=== PATIENT | male | born 1955 | race Caucasian/White ===

== ENCOUNTER 2019-11-02 10:29 | Outpatient (CLI) | payer OTHER ==
--- NOTE | 2019-11-02 18:16 | MRI Report ---
Reason: PAIN IN LT FOOT Procedure Date: 11/02/2019 Accession Number: [id number] / [id number] Procedure: MRI - Foot LT W/O CPT Code: Final Report FULL RESULT: EXAM: LEFT FOREFOOT MRI WITHOUT CONTRAST EXAM DATE: 11/02/2019 11:39 AM. CLINICAL HISTORY: Pain in left foot. Injury several months ago. COMPARISON: None. TECHNIQUE: Multiplanar, multisequence T1-weighted and fluid-sensitive sequences of the forefoot without contrast. Other: None. FINDINGS: Bones: No fractures. No marrow edema. No bone lesions. Joints: No subluxations. Small first MTP joint effusion. The orrqea-pjuqfmcm-izzcecrmya complex is unremarkable. The visualized plantar plates are unremarkable. Articular Cartilage: Unremarkable. Ligaments: The visualized collateral ligaments are intact. Tendons: The flexor and extensor tendons are unremarkable. Musculature: No edema or fatty atrophy. Other: No intermetatarsal bursitis. The subcutaneous tissues are unremarkable. IMPRESSION: No significant MRI abnormalities in the forefoot. Small first MTP joint effusion. RADIA
== END 2019-11-02 10:30 | disposition home or self-care (01) ==
LOC: DI 10:29
PROVIDERS: ATTEND Family Medicine
DX: M79.672 Pain in left foot (principal); M25.475 Effusion, left foot

== ENCOUNTER 2020-12-26 17:35 | Outpatient (CLI) | payer MEDICARE, OTHER | END 2020-12-26 17:36 | disposition critical access hospital (66) | LOC: EMS 17:35 | DX: R11.2 Nausea with vomiting, unspecified (principal); R42 Dizziness and giddiness; R51.9 Headache, unspecified | CPT/HCPCS: A0425; A0427 ==

== ENCOUNTER 2020-12-26 17:51 | Emergency (ER) | payer MEDICARE, OTHER ==
[2020-12-26] MEDS ORDERED: DROPERIDOL 5 MG/2 ML VIAL IVP STA (17:57)
[2020-12-26] MEDS ORDERED: diphenhydrAMINE INJ 50 MG/ML VIAL IVP STA (17:58)
[2020-12-26 18:12] LABS: BASOPHILS # (AUTO) 0.1 10^3/uL (0.0-0.1); BASOPHILS % (AUTO) 0.4 %; EOSINOPHILS # (AUTO) 0.1 10^3/uL (0.0-0.7); EOSINOPHILS % (AUTO) 0.6 %; HCT - HEMATOCRIT 43.5 % (42.0-52.0); HGB - HEMOGLOBIN 14.6 g/dL (14.0-18.0); LYMPHOCYTES # (AUTO) 0.9 10^3/uL (1.5-3.5); LYMPHOCYTES % (AUTO) 7.5 %; MEAN CORPUSCULAR HEMOGLOBIN 30.3 pg (27.0-31.0); MEAN CORPUSCULAR HGB CONC 33.6 g/dL (32.0-36.0); MEAN CORPUSCULAR VOLUME 90.2 fL (80.0-94.0); MEAN PLATELET VOLUME 9.9 fL (7.4-11.4); MONOCYTES # (AUTO) 0.7 10^3/uL (0.0-1.0); MONOCYTES % (AUTO) 5.7 %; NEUTROPHILS # (AUTO) 10.8 10^3/uL (1.5-6.6); NEUTROPHILS % (AUTO) 85.3 %; PLT - PLATELET COUNT 181 10^3/uL (130-450); RED BLOOD COUNT 4.82 10^6/uL (4.70-6.10); WHITE BLOOD COUNT 12.6 x10^3/uL (4.8-10.8)
[2020-12-26 18:26] LABS: ALBUMIN 4.4 g/dL (3.2-5.5); ALBUMIN/GLOBULIN RATIO 1.9 (1.0-2.2); BILIRUBIN,TOTAL 1.1 mg/dL (0.2-1.0); CALCIUM 8.8 mg/dL (8.5-10.3); CREATININE 0.8 mg/dL (0.6-1.2); POTASSIUM 3.5 mmol/L (3.5-5.0); TOTAL PROTEIN 6.7 g/dL (6.7-8.2)
--- NOTE | 2020-12-26 18:31 | ED Physician Documentation ---
History of Present Illness - Stated complaint Stated Complaint: N/V, HEADACHE - Chief complaint Chief Complaint: General - History obtained from History obtained from: Patient, EMS - History of Present Illness Timing: Today, How many hours ago (2) Pain level max: 8 Pain level now: 8 - Additonal information Additional information: 65-year-old male presents to the emergency department with nausea, vomiting, headache. Started about 2 hours prior to arrival. He has had similar symptoms several years ago. He uses marijuana 5-6 times per day. He states his main issue is severe nausea at the moment. Nothing makes it better or worse. Given Zofran with EMS without relief. Headache is frontal. States it is not the worst headache of his life. Review of Systems Ten Systems: 10 systems reviewed and negative Constitutional: denies: Fever, Chills Ears: denies: Ear pain Nose: denies: Rhinorrhea / runny nose, Congestion Throat: denies: Sore throat Cardiac: denies: Chest pain / pressure Respiratory: denies: Cough GI: reports: Nausea, Vomiting. denies: Diarrhea : denies: Dysuria, Frequency, Hesitancy Skin: denies: Rash Musculoskeletal: denies: Neck pain, Back pain Neurologic: reports: Headache PD PAST MEDICAL HISTORY - Past Medical History Past Medical History: Yes Cardiovascular: High cholesterol Psych: ADD/ADHD Musculoskeletal: Chronic back pain - Past Surgical History Past Surgical History: Yes General: Hiatal hernia repair - Present Medications Home Medications: Ambulatory Orders Medication Instructions Recorded Confirmed Ondansetron Odt [Zofran] 4 mg TL Q6H PRN #10 tablet 12/26/20 Promethazine [Phenergan] 25 mg PO Q6H PRN #10 tab 12/26/20 Simvastatin [Zocor] 40 mg PO HS 12/26/20 12/26/20 - Allergies Allergies/Adverse Reactions: Allergies Allergy/AdvReac Type Severity Reaction Status Date / Time acetaminophen Allergy Unknown Unknown Verified 12/26/20 17:54 [From Tylenol-Codeine #3] codeine phosphate * Allergy Unknown Unknown Verified 12/26/20 17:54 [From Tylenol-Codeine #3] - Social History Does the pt smoke?: No Smoking Status: Never smoker Does the pt drink ETOH?: Yes Does the pt have substance abuse?: Yes - Immunizations Immunizations are current?: Yes - POLST Patient has POLST: No PD ED PE NORMAL - Vitals Vital signs reviewed: Yes - General General: Alert and oriented X 3, No acute distress - HEENT HEENT: Atraumatic, PERRL, EOMI, Moist mucous membranes - Neck Neck: Supple, no meningeal sign - Cardiac Cardiac: RRR - Respiratory Respiratory: No respiratory distress, Clear bilaterally - Abdomen Abdomen: Soft, Non tender, Non distended - Derm Derm: Warm and dry - Extremities Extremities: No edema, No calf tenderness / cord - Neuro Neuro: Alert and oriented X 3 - Psych Psych: Normal mood, Normal affect Results - Vitals Vitals: Vital Signs - 24 hr 12/26/20 12/26/20 12/26/20 17:55 18:03 19:24 Temperature 35.5 C L 35.6 C L Heart Rate 71 69 77 Respiratory 22 20 20 Rate Blood Pressure 109/69 100/66 144/79 H O2 Saturation 100 98 95 12/26/20 20:10 Temperature 36.2 C L Heart Rate 79 Respiratory 16 Rate Blood Pressure 115/72 O2 Saturation 96 Oxygen O2 Source Room air - Labs Labs: Laboratory Tests 12/26/20 12/26/20 12/26/20 18:07 18:07 18:46 WBC 12.6 H RBC 4.82 Hgb 14.6 Hct 43.5 MCV 90.2 MCH 30.3 MCHC 33.6 RDW 13.0 Plt Count 181 MPV 9.9 Neut # (Auto) 10.8 H Lymph # (Auto) 0.9 L [place] # (Auto) 0.7 Eos # (Auto) 0.1 Baso # (Auto) 0.1 Absolute Nucleated RBC 0.00 Nucleated RBC % 0.0 Sodium 142 Potassium 3.5 Chloride 110 Carbon Dioxide 20 L Anion Gap 12.0 BUN 27 H Creatinine 0.8 Estimated GFR (MDRD) 97 Glucose 161 H Calcium 8.8 Total Bilirubin 1.1 H AST 25 ALT 28 Alkaline Phosphatase 45 Total Protein 6.7 Albumin 4.4 Globulin 2.3 Albumin/Globulin Ratio 1.9 Lipase 29 Urine Color YELLOW Urine Clarity CLEAR Urine pH 7.0 Ur Specific [place] 1.020 Urine Protein NEGATIVE Urine Glucose (UA) NEGATIVE Urine Ketones >=80 H Urine Occult Blood NEGATIVE Urine Nitrite NEGATIVE Urine Bilirubin NEGATIVE Urine Urobilinogen 0.2 (NORMAL) Ur Leukocyte Esterase NEGATIVE Ur Microscopic Review NOT INDICATED Urine Culture Comments NOT INDICATED - Rads (name of study) head CT Radiology: Prelim report reviewed, EMP read contemporaneously, See rad report (No acute intracranial abnormality) PD MEDICAL DECISION MAKING - ED course Complexity details: reviewed results, re-evaluated patient, considered differential, d/w patient ED course: 65-year-old male with what appears to be cannabinoid induced hyperemesis. He uses marijuana several times daily. Symptoms resolved completely with Benadryl and droperidol. Tolerating p.o. without difficulty. Feels much better. Head CT is negative. No acute findings on laboratory testing. Counseled to stop using marijuana. We will have him follow-up with his doctor for further care. Patient counseled regarding signs and symptoms for which I believe and urgent re-evaluation would be necessary. Patient with good understanding of and agreement to plan and is comfortable going home at this time This document was made in part using voice recognition software. While efforts are made to proofread this document, sound alike and grammatical errors may occur. Departure - Departure Disposition: 01 Home, Self Care Clinical Impression: Cannabinoid hyperemesis syndrome Vomiting Qualifiers: Vomiting type: unspecified Vomiting Intractability: non-intractable Nausea presence: with nausea Qualified Code(s): R11.2 - Nausea with vomiting, unspecified Condition: Good Instructions: ED Nausea Vomiting Follow-Up: BAO VASQUEZ ARNP [Primary Care Provider] - Within 1 week Prescriptions: Promethazine [Phenergan] 25 mg PO Q6H PRN #10 tab PRN Reason: Nausea / Vomiting Ondansetron Odt [Zofran] 4 mg TL Q6H PRN #10 tablet PRN Reason: Nausea / Vomiting Comments: Your symptoms today may be attributed to your cannabis use. You may find that warm showers help. You should stop using any marijuana. Follow-up with your doctor for further care. The symptoms may linger for several days to weeks, some patients that can last up to 3 months. Return if you worsen. Discharge Date/Time: 12/26/20 20:10
--- NOTE | 2020-12-26 18:44 | CT Report ---
PROCEDURE: HEAD WO INDICATIONS: headache, vomiting TECHNIQUE: Noncontrast 4.5 mm thick angled axial sections acquired from the foramen magnum to the vertex. For r adiation dose reduction, the following was used: automated exposure control, adjustment of mA and/or kV according to patient size. COMPARISON: None. FINDINGS: Image quality: Excellent. CSF spaces: Basal cisterns are patent. No extra-axial fluid collections. Ventricles are normal in size and shape. Brain: No midline shift. No intracranial masses or hemorrhage. Christian-white matter interface is norm al. Skull and face: Calvarium and visualized facial bones are intact, without suspicious lesions. Sinuses: Visualized sinuses and mastoids are clear. IMPRESSION: No CT evidence of acute intracranial pathology. Reviewed by: Tyrel Raines MD on 12/26/2020 6:43 PM PDT Approved by: Tyrel Raines MD on 12/26/2020 6:43 PM PDT Station ID: [id number]
[2020-12-26 18:56] LABS: BILIRUBIN,URINE NEGATIVE (NEGATIVE); GLUCOSE, URINE (UA) NEGATIVE (NEGATIVE); KETONES,URINE (UA) >=80 mg/dL (NEGATIVE); LEUKOCYTE ESTERASE, URINE NEGATIVE (NEGATIVE); NITRITE,URINE NEGATIVE (NEGATIVE); OCCULT BLOOD,URINE NEGATIVE (NEGATIVE); PROTEIN,URINE NEGATIVE (NEGATIVE); UROBILINOGEN,URINE 0.2 (NORMAL) E.U./dL (NORMAL)
[2020-12-26 18:57] LABS: CLARITY,URINE CLEAR (CLEAR)
[2020-12-26 20:16] VITALS: BP 115/72
== END 2020-12-26 20:10 | disposition home or self-care (01) ==
LOC: EDUNIT# → ED 17:51
DX: R11.2 Nausea with vomiting, unspecified (principal); F12.90 Cannabis use, unspecified, uncomplicated
CPT/HCPCS: 36415; 70450; 80053; 81003; 83690; 85025; 96374; 96375; 99284; J1200; 81001; 87086

== ENCOUNTER 2022-10-29 07:23 | Emergency (ER) | payer MEDICARE, OTHER ==
[2022-10-29] MEDS ORDERED: SODIUM CHLORIDE 0.9% 1,000 ML IV STA (07:47)
[2022-10-29] MEDS ORDERED: KETOROLAC 30 MG/ML VIAL IVP STA ×2 (07:47→08:02)
[2022-10-29] MEDS ORDERED: ONDANSETRON 4 MG/2 ML VIAL IVP STA (07:47)
[2022-10-29 08:07] LABS: BASOPHILS % (AUTO) 0.2 %; EOSINOPHILS % (AUTO) 0.3 %; HCT - HEMATOCRIT 45.3 % (42.0-52.0); HGB - HEMOGLOBIN 15.4 g/dL (14.0-18.0); LYMPHOCYTES # (AUTO) 0.8 10^3/uL (1.5-3.5); LYMPHOCYTES % (AUTO) 6.7 %; MEAN CORPUSCULAR HEMOGLOBIN 31.2 pg (27.0-31.0); MEAN CORPUSCULAR VOLUME 91.7 fL (80.0-94.0); MEAN PLATELET VOLUME 10.4 fL (7.4-11.4); MONOCYTES # (AUTO) 0.6 10^3/uL (0.0-1.0); MONOCYTES % (AUTO) 4.5 %; NEUTROPHILS # (AUTO) 10.7 10^3/uL (1.5-6.6); NEUTROPHILS % (AUTO) 87.9 %; PLT - PLATELET COUNT 195 10^3/uL (130-450); RED BLOOD COUNT 4.94 10^6/uL (4.70-6.10); RED CELL DISTRIBUTION WIDTH 13.1 % (12.0-15.0); WHITE BLOOD COUNT 12.2 x10^3/uL (4.8-10.8)
--- NOTE | 2022-10-29 08:19 | ED Physician Documentation ---
History of Present Illness - Stated complaint Stated Complaint: L FLANK PX - Chief complaint Chief Complaint: Abd Pain - History obtained from History obtained from: Patient - Additonal information Additional information: The patient comes to the emergency department for chief complaint of left flank pain that started around 130 this morning and woke him from sleep. Patient states that the pain waxes and wanes but sometimes, it gets a strong that he feels nauseated and vomits. Patient states in between he has chills. He denies any dysuria. No gross hematuria. He states that he has never had a kidney stone before. No history of diverticulitis. He has not been ill with anything lately and was feeling fine when he went to bed last night. No other complaints at this time. PD PAST MEDICAL HISTORY - Past Medical History Past Medical History: Yes Cardiovascular: High cholesterol Respiratory: None Neuro: Migraines Endocrine/Autoimmune: None GI: None : Other HEENT: None Psych: ADD/ADHD Musculoskeletal: Chronic back pain Derm: None - Past Surgical History Past Surgical History: Yes General: Hiatal hernia repair - Present Medications Home Medications: Ambulatory Orders Medication Instructions Recorded Confirmed Simvastatin [Zocor] 40 mg PO HS 12/26/20 10/29/22 Fluticasone [Flonase] 1 sprays KEVIN DAILY 10/29/22 10/29/22 HYDROcod/ACETAM 5/325 [[place] 5/325] 1 - 2 tablet PO Q6H PRN #14 tablet 10/29/22 Naproxen 500 mg PO BID PRN 10/29/22 10/29/22 Ondansetron Odt [Zofran] 4 mg TL Q6H PRN #10 tablet 10/29/22 Sildenafil Citrate 100 mg PO PRN PRN 10/29/22 10/29/22 Tamsulosin [Flomax] 1 cap PO DAILY #14 cap 10/29/22 - Allergies Allergies/Adverse Reactions: Allergies Allergy/AdvReac Type Severity Reaction Status Date / Time acetaminophen Allergy Unknown Unknown Verified 10/29/22 07:30 [From Tylenol-Codeine #3] codeine phosphate * Allergy Unknown Unknown Verified 10/29/22 07:30 [From Tylenol-Codeine #3] - Social History Does the pt smoke?: No Smoking Status: Never smoker Does the pt drink ETOH?: Yes Does the pt have substance abuse?: Yes Substance Use and Type: Marijuana - Immunizations Immunizations are current?: Yes - POLST Patient has POLST: No PD ED PE NORMAL - Vitals Vital signs reviewed: Yes - General General: Alert and oriented X 3, No acute distress, Well developed/nourished - HEENT HEENT: Atraumatic, PERRL, EOMI, Moist mucous membranes - Neck Neck: Supple, no meningeal sign - Cardiac Cardiac: RRR, No murmur, Strong equal pulses - Respiratory Respiratory: No respiratory distress, Clear bilaterally - Abdomen Abdomen: Soft, Non distended, Other (Mild tenderness left flank. No rebound or guarding.) - Derm Derm: Normal color, Warm and dry, No rash - Extremities Extremities: No deformity - Neuro Neuro: Alert and oriented X 3, Other (Grossly intact) - Psych Psych: Normal mood, Normal affect Results - Vitals Vitals: Vital Signs - 24 hr 10/29/22 10/29/22 10/29/22 07:31 07:54 10:01 Temperature 36.4 C L Heart Rate 61 62 58 L Respiratory 20 20 20 Rate Blood Pressure 149/96 H 149/94 H O2 Saturation 97 99 98 10/29/22 10:29 Temperature 36.8 C Heart Rate 63 Respiratory 16 Rate Blood Pressure 115/81 H O2 Saturation 95 Oxygen O2 Source Room air - Labs Labs: Laboratory Tests 10/29/22 10/29/22 10/29/22 07:45 07:45 10:00 WBC 12.2 H RBC 4.94 Hgb 15.4 Hct 45.3 MCV 91.7 MCH 31.2 H MCHC 34.0 RDW 13.1 Plt Count 195 MPV 10.4 Neut # (Auto) 10.7 H Lymph # (Auto) 0.8 L [place] # (Auto) 0.6 Eos # (Auto) 0.0 Baso # (Auto) 0.0 Absolute Nucleated RBC 0.00 Nucleated RBC % 0.0 Sodium 139 Potassium 3.7 Chloride 103 Carbon Dioxide 26 Anion Gap 10.0 BUN 26 H Creatinine 1.1 Estimated GFR (MDRD) 67 L Glucose 122 H Calcium 9.3 Total Bilirubin 0.9 AST 26 ALT 23 Alkaline Phosphatase 52 Total Protein 7.3 Albumin 4.4 Globulin 2.9 Albumin/Globulin Ratio 1.5 Lipase 45 Urine Color DARK YELLOW Urine Clarity CLEAR Urine pH 6.0 Ur Specific [place] >=1.030 H Urine Protein NEGATIVE Urine Glucose (UA) NEGATIVE Urine Ketones 15 H Urine Occult Blood LARGE H Urine Nitrite NEGATIVE Urine Bilirubin NEGATIVE Urine Urobilinogen 0.2 (NORMAL) Ur Leukocyte Esterase NEGATIVE Urine RBC 11-25 H Urine WBC 0-3 Ur Squamous Epith Cells RARE Squamous Urine Bacteria Rare Urine Mucus Few Strands Ur Microscopic Review INDICATED Urine Culture Comments NOT INDICATED - Rads (name of study) CT abdomen pelvis no contrast Radiology: Final report received, See rad report (2 mm calculus in the distal left ureter with mild hydronephrosis and perinephric stranding.) PD Medical Decision Making - ED course Complexity details: reviewed results, re-evaluated patient, considered differential, d/w patient ED course: The patient was given IV fluids, Zofran, and Toradol for symptomatic relief. He was worked up with labs and ultimately, CT scan of the abdomen and pelvis and urinalysis. CT showed a 2 mm stone in the distal left ureter. The patient's urinalysis showed blood but no infection by my interpretation. CBC was ordered and reviewed by me and showed a mild white blood cell count elevation. ER abdominal panel reviewed by me and unremarkable. Departure - Departure Disposition: Home, Self Care Clinical Impression: Kidney stone on left side Condition: Stable Instructions: ED Stone Renal W Colic Follow-Up: Maria Guadalupe Lugo MD [Physician No Access] - Prescriptions: Tamsulosin [Flomax] 1 cap PO DAILY #14 cap HYDROcod/ACETAM 5/325 [[place] 5/325] 1 - 2 tablet PO Q6H PRN #14 tablet PRN Reason: Pain Ondansetron Odt [Zofran] 4 mg TL Q6H PRN #10 tablet PRN Reason: Nausea / Vomiting Comments: Your CT scan shows a 2 mm stone that has made most of the way down your ureter on the left. This is a very possible size and while uncomfortable, will be expected to pass successfully without further intervention. This generally takes hours to a few days, but occasionally, can take up to a few weeks. Medication for pain, nausea, and smooth muscle relaxation of your ureter has been electronically transmitted to the [facility] pharmacy in [place]. If your symptoms are not noticeably improved in the next couple of weeks, you should call to make an appointment to follow-up with urology. Be sure you are drinking at least 8 if not 10 cups of water per day to help push the stone through. If you become very nauseated and cannot hold your medications down, please return to the emergency department. Discharge Date/Time: 10/29/22 10:41
[2022-10-29 08:28] LABS: ALBUMIN 4.4 g/dL (3.2-5.5); ALBUMIN/GLOBULIN RATIO 1.5 (1.0-2.2); BILIRUBIN,TOTAL 0.9 mg/dL (0.2-1.0); CALCIUM 9.3 mg/dL (8.5-10.3); CREATININE 1.1 mg/dL (0.6-1.2); POTASSIUM 3.7 mmol/L (3.5-5.0); TOTAL PROTEIN 7.3 g/dL (6.7-8.2)
[2022-10-29] MEDS ORDERED: HYDROmorphone 0.5 MG/0.5 ML SYRINGE IVP STA (09:29)
--- NOTE | 2022-10-29 09:30 | CT Report ---
PROCEDURE: ABDOMEN/PELVIS WO INDICATIONS: L flank pain TECHNIQUE: Noncontrast 5 mm thick sections acquired from the diaphragms to the symphysis. 5 mm coronal and sagi ttal reformats were then performed. For radiation dose reduction, the following was used: automated exposure control, adjustment of mA and/or kV according to patient size. COMPARISON: None. FINDINGS: Image quality: Excellent. ABDOMEN: Lung bases: Lung bases are clear. Heart size is normal. Small hiatal hernia. Solid organs: Obstructing 2 mm stone in the distal left ureter, resulting in upstream moderate hydron ephrosis and perinephric fat stranding. Remaining solid organs are unremarkable. Peritoneum and bowel: Unenhanced bowel loops demonstrate normal wall thickness and caliber. No free fluid or air. Colonic diverticulosis without evidence of diverticulitis. Nodes and vessels: No retroperitoneal or mesenteric adenopathy by size criteria. Aorta and inferior vena cava are normal in caliber. Miscellaneous: Tiny umbilical hernia containing fat. PELVIS: Genitourinary: Bladder wall thickness is normal. Miscellaneous: Fat within the left inguinal canal. Bones: No suspicious bony lesions. No vertebral body compression fractures. IMPRESSION: Obstructing 2 mm stone in the distal left ureter, resulting in upstream moderate hydronephrosis and p erinephric fat stranding. Reviewed by: Geoffrey Su on 10/29/2022 9:29 AM [facility] Approved by: Geoffrey Su on 10/29/2022 9:29 AM PST Station ID: [id number]
[2022-10-29] MEDS ORDERED: HYDROmorphone 1 MG/ML CARPUJECT IVP STA (10:00)
[2022-10-29] MEDS ORDERED: HYDROcod/ACETAM 5/325 MG TABLET PO STA (10:00)
[2022-10-29] MEDS ORDERED: TAMSULOSIN 0.4 MG CAPSULE PO STA (10:01)
[2022-10-29 10:16] LABS: BILIRUBIN,URINE NEGATIVE (NEGATIVE); GLUCOSE, URINE (UA) NEGATIVE (NEGATIVE); KETONES,URINE (UA) 15 mg/dL (NEGATIVE); LEUKOCYTE ESTERASE, URINE NEGATIVE (NEGATIVE); NITRITE,URINE NEGATIVE (NEGATIVE); OCCULT BLOOD,URINE LARGE (NEGATIVE); PROTEIN,URINE NEGATIVE (NEGATIVE); UROBILINOGEN,URINE 0.2 (NORMAL) E.U./dL (NORMAL)
[2022-10-29 10:19] LABS: CLARITY,URINE CLEAR (CLEAR)
[2022-10-29 10:27] LABS: BACTERIA,URINE Rare /HPF (None Seen); MUCUS,URINE Few Strands; SQUAMOUS EPITHELIAL CELL,UR RARE Squamous (<= Few); WBC,URINE 0-3 /HPF (0-3)
[2022-10-29 10:29] VITALS: BP 115/81
== END 2022-10-29 10:41 | disposition home or self-care (01) ==
LOC: ED 07:23
DX: N13.2 Hydronephrosis with renal and ureteral calculous obstruction (principal)
CPT/HCPCS: 36415; 74176; 80053; 81001; 83690; 85025; 96374; 96375; 96376; 99284; A9270; J1170; 81003; 87086